=== PATIENT | male | born 1980 | race Caucasian/White ===

== ENCOUNTER 2018-02-02 10:43 | Emergency (ER) | payer MEDICAID ==
[~2018-02-02] VITALS: Ht 182.9 cm; Wt 147.0 kg
[2018-02-02 10:50] VITALS: BP_SYST 153
[2018-02-02] MEDS ORDERED: ALBUTEROL SULFATE 0.083% 2.5 MG/3 ML VIAL.NEB INH ONE (11:30)
[2018-02-02 11:47] LABS: BASOPHILS # (AUTO) 0.1 K/uL (0.0-0.2); BASOPHILS % (AUTO) 0.9 % (0.0-2.0); EOSINOPHILS # (AUTO) 0.2 K/uL (0.0-0.4); EOSINOPHILS % (AUTO) 2.4 % (0.0-4.0); HEMATOCRIT 48.8 % (36-54); LYMPHOCYTES # (AUTO) 2.6 K/uL (1.0-5.5); LYMPHOCYTES % (AUTO) 33.8 % (20.5-51.5); MEAN CORPUSCULAR HEMOGLOBIN 30 pg (27-31); MEAN CORPUSCULAR HGB CONC 33 % (32-36); MEAN CORPUSCULAR VOLUME 91 fL (79.0-98.0); MONOCYTES # (AUTO) 0.9 K/uL (0.0-1.0); MONOCYTES % (AUTO) 11.4 % (1.7-9.3); NEUTROPHILS % (AUTO) 51.5 % (40.0-70.0); PLATELET COUNT (AUTO) 238 K/uL (130-430); RED BLOOD CELL COUNT(AUTO) 5.36 MIL/uL (4.2-6.2); WHITE BLOOD COUNT (AUTO) 7.8 K/uL (4.8-10.8)
[2018-02-02 11:55] LABS: BILIRUBIN,URINE NEGATIVE (NEGATIVE); CLARITY/URINE SL HAZY (CLEAR); COLOR,URINE YELLOW (YELLOW); GLUCOSE,URINE NEGATIVE (NEGATIVE); KETONES,URINE NEGATIVE (NEGATIVE); LEUKOCYTE ESTERASE ,URINE NEGATIVE (NEGATIVE); NITRITE, URINE NEGATIVE (NEGATIVE); PROTEIN URINE NEGATIVE (NEGATIVE); UROBILINOGEN,URINE 0.2 (0.2-1.0)
[2018-02-02 11:57] LABS: BLOOD, URINE TRACE (NEGATIVE)
[2018-02-02 12:01] LABS: CALCIUM 9.1 mg/dL (8.4-11.0); CREATININE 0.86 mg/dL (0.55-1.30); POTASSIUM 4.1 mmol/L (3.5-5.1)
[2018-02-02 12:02] LABS: PROTHROMBIN TIME 9.7 SECS (9.5-12.5)
[2018-02-02 12:05] LABS: TOTAL BILIRUBIN 0.4 mg/dL (0.0-1.0)
[2018-02-02 12:06] LABS: BACTERIA,URINE RARE /HPF (None Seen); RBC,URINE 0-3 /HPF (0-3); WBC,URINE NONE SEEN /HPF (0-3)
[2018-02-02] MEDS ORDERED: cloNIDine HCL 0.1 MG TABLET PO ONE (14:00)
[2018-02-02 14:05] VITALS: BP_SYST 148
== END 2018-02-02 14:05 | disposition home or self-care (01) ==
LOC: SED 10:43
DX: R06.02 Shortness of breath (principal); K40.90 Unilateral inguinal hernia, without obstruction or gangrene, not specified as recurrent; F41.9 Anxiety disorder, unspecified; E66.2 Morbid (severe) obesity with alveolar hypoventilation; Z68.41 Body mass index [BMI] 40.0-44.9, adult
CPT/HCPCS: 36415; 71045; 74176; 80053; 81000; 83605; 83690; 84484; 85025; 85610; 87040; 93005; 94640; 99285; J7613

== ENCOUNTER 2019-09-28 12:29 | Emergency (ER) | payer SELFPAY ==
[~2019-09-28] VITALS: Ht 182.9 cm; Wt 145.1 kg
[2019-09-28 12:30] VITALS: BP_SYST 163
--- NOTE | 2019-09-28 12:30 | NUR ---
BROUGHT BACK TO BED #7 AND TRIAGED. REPORT GIVEN TO JOSE
--- NOTE | 2019-09-28 12:35 | NUR ---
Pt brought by self, A&Ox4, pt presents to ER with L foot pain and L toe pain, denies trauma, skin pink and warm, cap refill <3, no open wounds noted, will cont to monitor.
--- NOTE | 2019-09-28 12:46 | NUR ---
Dr Dewitt at bedside examining patient
[2019-09-28 13:24] VITALS: BP_SYST 161
--- NOTE | 2019-09-28 13:25 | NUR ---
Patient given written and verbal discharge instructions and verbalizes understanding. ER MD discussed with patient the results and treatment provided. Patient in stable condition. ID arm band removed. Rx of naproxen & tramadol given. Patient educated on pain management and to follow up with PMD. Pain Scale3/10 tolerable for pt . Opportunity for questions provided and answered. Medication side effect fact sheet provided.
== END 2019-09-28 13:24 | disposition home or self-care (01) ==
LOC: SED 12:29
DX: S93.492A Sprain of other ligament of left ankle, initial encounter (principal); X58.XXXA Exposure to other specified factors, initial encounter; Y93.89 Activity, other specified; Y92.89 Other specified places as the place of occurrence of the external cause; Y99.8 Other external cause status
CPT/HCPCS: 99283